=== PATIENT | female | born 1990 | race Caucasian/White ===

== ENCOUNTER 2016-11-20 13:50 | Inpatient (IN) | payer OTHER ==
--- NOTE | 2016-11-20 14:11 | RAD ---
HISTORY: Right-sided facial droop, slurred speech COMPARISONS: MRI of the brain dated March 08, 2011 TECHNIQUE: Multiple contiguous axial CT scans were obtained of the head without intravenous contrast. FINDINGS: HEMORRHAGE/INFARCT: There is no hemorrhage or acute infarct. MASSES/SHIFT: There is no mass or shift. EXTRA-AXIAL SPACES: There are no extra-axial fluid collections. SULCI AND VENTRICLES: The sulci and ventricles are normal in size and position for the patient's stated age. CEREBRUM: There are no focal parenchymal abnormalities. BRAINSTEM: There are no focal parenchymal abnormalities. CEREBELLUM: There are no focal parenchymal abnormalities. VESSELS: The vessels are grossly normal. PARANASAL SINUSES: The paranasal sinuses are clear. ORBITS: The orbits are unremarkable. BONES AND SOFT TISSUE: No bone or soft tissue abnormalities are noted. OTHER: None IMPRESSION: NO ACUTE INTRACRANIAL PATHOLOGY. PRELIMINARY FINDINGS WERE DISCUSSED WITH DR. WRIGHT IN THE EMERGENCY DEPARTMENT AT APPROXIMATELY 2:07 PM ON NOVEMBER 20, 2016.
[2016-11-20 14:21] LABS: Hematocrit 41 % (35-47); Hemoglobin 13.6 g/dl (12.0-16.0); Mean Corpuscular HGB Conc 33 g/dl (31-36); Mean Corpuscular Hemoglobin 31 pg (27-31); Mean Corpuscular Volume 93 fL (80-97); Mean Platelet Volume 8 um3 (7.4-10.4); Red Blood Count 4.37 10^6/ul (4.0-5.4); Red Cell Distribution Width 13 % (10.5-15)
[2016-11-20] MEDS ORDERED: NS 0.9% 1000 ML* 1,000 ML IV ONE (14:26)
[2016-11-20 14:36] LABS: Albumin 4.4 g/dL (3.2-5.2); BUN/Creatinine Ratio 12.8 (8-20); Calcium 9.7 mg/dL (8.6-10.3); EGFR African American 116.7 (>60); EGFR Non-African American 90.7 (>60); Globulin 2.7 g/dL (2-4); HDL Cholesterol 63.9 mg/dL; Potassium 3.6 mmol/L (3.5-5.0); Total Bilirubin 0.5 mg/dL (0.2-1.0); Total Protein 7.1 g/dL (6.4-8.9)
[2016-11-20] MEDS ORDERED: Iodixanol* (CONTRAST) 320 MG/ML 100 ML SDV IV ONE (14:41)
[2016-11-20 14:42] LABS: Urine Bilirubin Negative (Negative); Urine Glucose Negative (Negative); Urine Nitrite Negative (Negative)
--- NOTE | 2016-11-20 15:05 | RAD ---
HISTORY: Code hung, stroke COMPARISONS: April 18, 2014 VIEWS:1: Single frontal portable view of the chest at 2:55 PM FINDINGS: LINES AND TUBES: None. CARDIOMEDIASTINAL SILHOUETTE: The cardiomediastinal silhouette is normal for portable technique. PLEURA: The costophrenic angles are sharp. No pleural abnormalities are noted. LUNG PARENCHYMA: The lungs are clear. ABDOMEN: The upper abdomen is clear. There is no subphrenic gas. BONES AND SOFT TISSUES: No bone or soft tissue abnormalities are noted. IMPRESSION: NO ACTIVE CARDIOPULMONARY DISEASE.
[2016-11-20] MEDS ORDERED: ALTEPLASE IV ONE ×4 (15:13)
[2016-11-20] MEDS ORDERED: Alteplase* 100 MG VIAL ONE (15:18)
--- NOTE | 2016-11-20 15:38 | RAD ---
HISTORY: Right facial droop, speech difficulty COMPARISONS: Head CT dated November 02, 2016 TECHNIQUE: Multiple contiguous axial CT scans were obtained of the head and neck After the administration of nonionic intravenous contrast timed to the systemic arterial phase of contrast enhancement. Coronal and sagittal multiplanar reformations are submitted for review. Multiple 3-D maximum intensity projection reconstructions are also submitted for review. FINDINGS: Evaluation is limited by suboptimal contrast opacification. CTA NECK: AORTIC ARCH: The left vertebral artery originates from the aortic arch. There is no ostial or proximal stenosis of the cephalic great vessels. RIGHT VERTEBRAL ARTERY: The right vertebral artery is patent along its course, without stenosis. LEFT VERTEBRAL ARTERY: The left vertebral artery is patent along its course, without stenosis. DOMINANCE: The vertebral arteries are codominant. RIGHT COMMON CAROTID ARTERY: The right common carotid artery is patent. The right carotid bifurcation occurs at C5-C6 RIGHT INTERNAL CAROTID ARTERY: There is no right internal carotid artery stenosis by NASCET criteria. RIGHT EXTERNAL CAROTID ARTERY: The right external carotid artery is unremarkable. LEFT COMMON CAROTID ARTERY: The left common carotid artery is patent. The left carotid bifurcation occurs at C6 LEFT INTERNAL CAROTID ARTERY: There is no left internal carotid artery stenosis by NASCET criteria. LEFT EXTERNAL CAROTID ARTERY: The left external carotid artery is unremarkable. VENOUS CIRCULATION: The venous system is unremarkable. SALIVARY GLANDS: The parotid glands, submandibular glands, sublingual glands are normal. NASAL CAVITY/NASOPHARYNX: The nasal cavity and nasopharynx are normal. ORAL CAVITY/OROPHARYNX: The oral cavity is obscured by streak artifact from dental amalgam. The visualized oral cavity and oropharynx are unremarkable. LARYNGEAL APPARATUS/HYPOPHARYNX: The laryngeal apparatus and hypopharynx are normal. UPPER AIRWAY/UPPER ESOPHAGUS: The visualized upper airway and esophagus are normal. LUNG APICES: The lung apices are clear. THYROID GLAND: The thyroid gland is normal. LYMPH NODES: There is no lymphadenopathy by size criteria. BONES AND SOFT TISSUES: No bone or soft tissue abnormalities are noted. CTA HEAD: INTRACRANIAL CIRCULATION: There is no aneurysm, vascular malformation, occlusion, or stenosis of the visualized intracranial circulation. The anterior communicating artery complex is clear. Bilateral posterior communicating arteries are identified. VENOUS CIRCULATION: The venous system is unremarkable. PERFUSION: There is no obvious parenchymal perfusion deficit. HEMORRHAGE/INFARCT: There is no hemorrhage or acute infarct. MASSES/SHIFT: There is no mass or shift. EXTRA-AXIAL SPACES: There are no extra-axial fluid collections. SULCI AND VENTRICLES: The sulci and ventricles are normal in size and position for the patient's stated age. CEREBRUM: There are no focal parenchymal abnormalities. BRAINSTEM: There are no focal parenchymal abnormalities. CEREBELLUM: There are no focal parenchymal abnormalities. PARANASAL SINUSES: The paranasal sinuses are clear. ORBITS: The orbits are unremarkable. BONES AND SOFT TISSUE: No bone or soft tissue abnormalities are noted. OTHER: There is no abnormal enhancement. IMPRESSION: 1. NO ANEURYSM, VASCULAR MALFORMATION, OCCLUSION, OR STENOSIS OF THE VISUALIZED INTRACRANIAL CIRCULATION. 2. NO INTERNAL CAROTID ARTERY STENOSIS BY NASCET CRITERIA. CPT II Codes: 3100F
--- NOTE | 2016-11-20 16:00 | ED ---
Henry Limon Anna, scribed for Reji Wright MD on 11/20/16 at 1358 . Neurological HPI - HPI Summary HPI Summary: Patient is a 26 y/o female BIBA to [facility] presenting with sudden onset of intermittent aphasia that began this afternoon at 13:00 while she was at work. She additionally has right-sided facial droop. She reports feeling dizzy and unwell. Her arms work as normal, though she has some diminished strength in her right side. She has the beginnings of a MÁRQUEZ at the front of her head. - History of Current Complaint Stated Complaint: CODE CARRENO Time Seen by Provider: 11/20/16 13:53 Hx Obtained From: Patient, EMS Hx Last Menstrual Period: 02/05/2014 Onset/Duration: Started hours ago, Still Present Timing: Constant - Allergy/Home Medications Allergies/Adverse Reactions: Allergies Allergy/AdvReac Type Severity Reaction Status Date / Time Bee Venom Allergy Severe Anaphylatic Verified 07/09/15 10:31 Shock Milk Protein Extract Allergy lip Verified 07/09/15 10:31 [From Spiriva] swelling Tiotropium [From Spiriva] Allergy lip Verified 07/09/15 10:31 swelling ENVIRONMENTAL Allergy Severe Anaphylatic Uncoded 07/09/15 10:31 Shock PMH/Surg Hx/FS Hx/Imm Hx Endocrine/Hematology History: Reports: Hx Anemia - pt states she has had issues with anemia Denies: Hx Blood Transfusions, Hx Diabetes Cardiovascular History: Denies: Hx Congestive Heart Failure, Hx Pacemaker/ICD, Hx Rheumatic Fever, Other Cardiovascular Problems/Disorders Respiratory History: Reports: Hx Asthma Denies: Hx Pulmonary Embolism, Other Respiratory Problems/Disorders GI History: Denies: Other GI Disorders History: Denies: Other Problems/Disorders Musculoskeletal History: Reports: Hx Arthritis - REACTIVE ARTHRITIS, Hx Tendonitis - LEFT ANKLE Sensory History: Reports: Hx Contacts or Glasses Denies: Hx Hearing Aid Opthamlomology History: Reports: Hx Contacts or Glasses Neurological History: Reports: Hx Headaches, Hx Migraine - WHEN STARTING BCP Denies: Hx Dementia, Hx Developmental Delay, Hx Seizures, Other Neuro Impairments/Disorders Psychiatric History: Denies: Hx Anxiety, Hx Depression, Hx Panic Disorder, Other Psychiatric Issues/Disorders - Surgical History Surgery Procedure, Year, and Place: l leg tendon reconstruction x2 Hx Anesthesia Reactions: No Infectious Disease History: Denies: Hx Clostridium Difficile, Hx Hepatitis, Hx Human Immunodeficiency Virus (HIV), Hx of Known/Suspected MRSA, Hx Shingles, Hx Tuberculosis, Hx Known/ Suspected VRE, Hx Known/Suspected VRSA, History Other Infectious Disease, Traveled Outside the [place] in Last 30 Days - Family History Known Family History: Positive: Other - Hx CA in grandparents and parents; Hx CVA in sister - Social History Occupation: Employed Full-time Lives: With Family Alcohol Use: None Substance Use Type: Reports: None Smoking Status (MU): Former Smoker Type: Cigarettes Amount Used/How Often: 6-7 cig/day Length of Time of Smoking/Using Tobacco: 8 years Have You Smoked in the Last Year: No Review of Systems Neurological: Other - Aphasia, Right-sided facial droop, dizziness Positive: Headache, Weakness Psychological: Normal All Other Systems Reviewed And Are Negative: Yes Physical Exam Triage Information Reviewed: Yes Vital Signs On Initial Exam: Temp Pulse Resp BP Pulse Ox 63 19 134/81 100 11/20/16 14:30 11/20/16 14:30 11/20/16 14:30 11/20/16 14:30 Vital Signs Reviewed: Yes Appearance: Positive: Well-Appearing, No Pain Distress Skin: Positive: Warm, Skin Color Reflects Adequate Perfusion, Dry Head/Face: Positive: Normal Head/Face Inspection Eyes: Positive: EOMI, ERIK ENT: Positive: Normal ENT inspection Neck: Positive: Supple, Nontender Respiratory/Lung Sounds: Positive: Clear to Auscultation, Breath Sounds Present Cardiovascular: Positive: RRR Abdomen Description: Positive: Nontender, Soft Bowel Sounds: Positive: Present Musculoskeletal: Positive: Normal, Strength/ROM Intact Neurological: Positive: Sensory/Motor Intact, Alert, Oriented to Person Place, Time, Other - right-sided facial droop Psychiatric: Positive: Affect/Mood Appropriate Diagnostics - Vital Signs Vital Signs Temp Pulse Resp BP Pulse Ox 11/20/16 15:39 75 20 121/67 98 11/20/16 15:35 20 121/65 11/20/16 15:06 67 19 99 11/20/16 14:30 63 19 134/81 100 11/20/16 14:10 67 100 11/20/16 14:08 133/68 11/20/16 13:51 98.2 F 78 20 133/68 97 - Laboratory Lab Results: Lab Results 11/20/16 11/20/1617 Range/Units 14:14 14:14 14:14 WBC 9.0 (3.5-10.8) 10^3/ul RBC 4.37 (4.0-5.4) 10^6/ul Hgb 13.6 (12.0-16.0) g/dl Hct 41 (35-47) % MCV 93 (80-97) fL MCH 31 (27-31) pg MCHC 33 (31-36) g/dl RDW 13 (10.5-15) % Plt Count 231 (150-450) 10^3/ul MPV 8 (7.4-10.4) um3 Neut % (Auto) 72.0 (38-83) % Lymph % (Auto) 22.0 L (25-47) % Platte % (Auto) 4.2 (1-9) % Eos % (Auto) 1.0 (0-6) % Baso % (Auto) 0.8 (0-2) % Absolute Neuts (auto) 6.5 (1.5-7.7) 10^3/ul Absolute Lymphs (auto) 2.0 (1.0-4.8) 10^3/ul Absolute Monos (auto) 0.4 (0-0.8) 10^3/ul Absolute Eos (auto) 0.1 (0-0.6) 10^3/ul Absolute Basos (auto) 0.1 (0-0.2) 10^3/ul Absolute Nucleated RBC 0 10^3/ul Nucleated RBC % 0 INR (Anticoag Therapy) 0.95 (0.89-1.11) APTT 31.1 (26.0-36.3) seconds Sodium 138 (133-145) mmol/L Potassium 3.6 (3.5-5.0) mmol/L Chloride 106 (101-111) mmol/L Carbon Dioxide 26 (22-32) mmol/L Anion Gap 6 (2-11) mmol/L BUN 10 (6-24) mg/dL Creatinine 0.78 (0.51-0.95) mg/dL Est GFR ( Amer) 116.7 (>60) Est GFR (Non-Af Amer) 90.7 (>60) BUN/Creatinine Ratio 12.8 (8-20) Glucose 148 H (70-100) mg/dL POC Glucose (mg/dL) (74-106) mg/dL Lactic Acid (0.5-2.0) mmol/L Calcium 9.7 (8.6-10.3) mg/dL Total Bilirubin 0.50 (0.2-1.0) mg/dL AST 14 (13-39) U/L ALT 13 (7-52) U/L Alkaline Phosphatase 48 (34-104) U/L Troponin I 0.00 (<0.04) ng/mL Total Protein 7.1 (6.4-8.9) g/dL Albumin 4.4 (3.2-5.2) g/dL Globulin 2.7 (2-4) g/dL Albumin/Globulin Ratio 1.6 (1-3) Triglycerides 108 mg/dL Cholesterol 200 mg/dL LDL Cholesterol 115 mg/dL HDL Cholesterol 63.9 mg/dL Urine Color Urine Appearance Urine pH (5-9) Ur Specific [place] (1.010-1.030) Urine Protein (Negative) Urine Ketones (Negative) Urine Blood (Negative) Urine Nitrate (Negative) Urine Bilirubin (Negative) Urine Urobilinogen (Negative) Ur Leukocyte Esterase (Negative) Urine Glucose (Negative) Blood Type Antibody Screen 11/20/16 11/20/16 11/20/16 Range/Units 14:14 14:14 14:21 WBC (3.5-10.8) 10^3/ul RBC (4.0-5.4) 10^6/ul Hgb (12.0-16.0) g/dl Hct (35-47) % MCV (80-97) fL MCH (27-31) pg MCHC (31-36) g/dl RDW (10.5-15) % Plt Count (150-450) 10^3/ul MPV (7.4-10.4) um3 Neut % (Auto) (38-83) % Lymph % (Auto) (25-47) % [place]atte % (Auto) (1-9) % Eos % (Auto) (0-6) % Baso % (Auto) (0-2) % Absolute Neuts (auto) (1.5-7.7) 10^3/ul Absolute Lymphs (auto) (1.0-4.8) 10^3/ul Absolute Monos (auto) (0-0.8) 10^3/ul Absolute Eos (auto) (0-0.6) 10^3/ul Absolute Basos (auto) (0-0.2) 10^3/ul Absolute Nucleated RBC 10^3/ul Nucleated RBC % INR (Anticoag Therapy) (0.89-1.11) APTT (26.0-36.3) seconds Sodium (133-145) mmol/L Potassium (3.5-5.0) mmol/L Chloride (101-111) mmol/L Carbon Dioxide (22-32) mmol/L Anion Gap (2-11) mmol/L BUN (6-24) mg/dL Creatinine (0.51-0.95) mg/dL Est GFR ( Amer) (>60) Est GFR (Non-Af Amer) (>60) BUN/Creatinine Ratio (8-20) Glucose (70-100) mg/dL POC Glucose (mg/dL) 175 H (74-106) mg/dL Lactic Acid 1.8 (0.5-2.0) mmol/L Calcium (8.6-10.3) mg/dL Total Bilirubin (0.2-1.0) mg/dL AST (13-39) U/L ALT (7-52) U/L Alkaline Phosphatase (34-104) U/L Troponin I (<0.04) ng/mL Total Protein (6.4-8.9) g/dL Albumin (3.2-5.2) g/dL Globulin (2-4) g/dL Albumin/Globulin Ratio (1-3) Triglycerides mg/dL Cholesterol mg/dL LDL Cholesterol mg/dL HDL Cholesterol mg/dL Urine Color Urine Appearance Urine pH (5-9) Ur Specific [place] (1.010-1.030) Urine Protein (Negative) Urine Ketones (Negative) Urine Blood (Negative) Urine Nitrate (Negative) Urine Bilirubin (Negative) Urine Urobilinogen (Negative) Ur Leukocyte Esterase (Negative) Urine Glucose (Negative) Blood Type A Positive Antibody Screen Negative 11/20/16 Range/Units 14:30 WBC (3.5-10.8) 10^3/ul RBC (4.0-5.4) 10^6/ul Hgb (12.0-16.0) g/dl Hct (35-47) % MCV (80-97) fL MCH (27-31) pg MCHC (31-36) g/dl RDW (10.5-15) % Plt Count (150-450) 10^3/ul MPV (7.4-10.4) um3 Neut % (Auto) (38-83) % Lymph % (Auto) (25-47) % Platte % (Auto) (1-9) % Eos % (Auto) (0-6) % Baso % (Auto) (0-2) % Absolute Neuts (auto) (1.5-7.7) 10^3/ul Absolute Lymphs (auto) (1.0-4.8) 10^3/ul Absolute Monos (auto) (0-0.8) 10^3/ul Absolute Eos (auto) (0-0.6) 10^3/ul Absolute Basos (auto) (0-0.2) 10^3/ul Absolute Nucleated RBC 10^3/ul Nucleated RBC % INR (Anticoag Therapy) (0.89-1.11) APTT (26.0-36.3) seconds Sodium (133-145) mmol/L Potassium (3.5-5.0) mmol/L Chloride (101-111) mmol/L Carbon Dioxide (22-32) mmol/L Anion Gap (2-11) mmol/L BUN (6-24) mg/dL Creatinine (0.51-0.95) mg/dL Est GFR ( Amer) (>60) Est GFR (Non-Af Amer) (>60) BUN/Creatinine Ratio (8-20) Glucose (70-100) mg/dL POC Glucose (mg/dL) (74-106) mg/dL Lactic Acid (0.5-2.0) mmol/L Calcium (8.6-10.3) mg/dL Total Bilirubin (0.2-1.0) mg/dL AST (13-39) U/L ALT (7-52) U/L Alkaline Phosphatase (34-104) U/L Troponin I (<0.04) ng/mL Total Protein (6.4-8.9) g/dL Albumin (3.2-5.2) g/dL Globulin (2-4) g/dL Albumin/Globulin Ratio (1-3) Triglycerides mg/dL Cholesterol mg/dL LDL Cholesterol mg/dL HDL Cholesterol mg/dL Urine Color Yellow Urine Appearance Clear Urine pH 7.0 (5-9) Ur Specific [place] 1.005 L (1.010-1.030) Urine Protein Negative (Negative) Urine Ketones Negative (Negative) Urine Blood Negative (Negative) Urine Nitrate Negative (Negative) Urine Bilirubin Negative (Negative) Urine Urobilinogen Negative (Negative) Ur Leukocyte Esterase Negative (Negative) Urine Glucose Negative (Negative) Blood Type Antibody Screen Result Diagrams: 11/20/16 14:14 11/20/16 14:14 Lab Statement: Any lab studies that have been ordered have been reviewed, and results considered in the medical decision making process. - CT Brain CT CT Interpretation: No Acute Changes CT Interpretation Completed By: Radiologist - IMPRESSION: NO ACUTE INTRACRANIAL PATHOLOGY. PRELIMINARY FINDINGS WERE DISCUSSED WITH DR. WRIGHT IN THE EMERGENCY DEPARTMENT AT APPROXIMATELY 2:07 PM ON NOVEMBER 20, 2016. Course/Dx - Course Assessment/Plan: DR EL SAW IN ED AND TPA GIVEN. ADMIT HOSPITALIST TO ICU STABLE. - Diagnoses Provider Diagnoses: CVA (cerebral vascular accident) During the Visit The Following Alert/Code Occurred: Code Carreno - Physician Notifications Discussed Care of Patient With: Dr. El (nerology) at 14:07. He will come see the patient. Discharge - Discharge Plan Condition: Stable Disposition: ADMITTED TO [facility] Referrals: Dagoberto Bullard MD [Primary Care Provider] - The documentation as recorded by the Henry arciniega Anna accurately reflects the service I personally performed and the decisions made by me, Reji Wright MD.
[2016-11-20] MEDS ORDERED: ALPRAZolam TAB* 0.25 MG PO PRN (16:56)
[2016-11-20] MEDS ORDERED: Albuterol HFA INHALER* 8 gm MDI INH PRN (16:56)
[2016-11-20] MEDS ORDERED: Albuterol 2.5 MG/3 ML NEB.SOL* (0.083%) INH PRN (17:10)
[2016-11-20] MEDS: NS 0.9% 1000 ML* 1,000 ML IV SCH (18:17)
[2016-11-20] MEDS: Acetaminophen TAB* 325 MG PO PRN (19:29)
--- NOTE | 2016-11-20 19:35 | CONS ---
NEUROLOGY CONSULTATION: DATE OF CONSULT: 11/20/16 REFERRING PHYSICIAN: Dr. Reji Pineda. LOCATION: She is in the emergency room. CHIEF COMPLAINT: Facial weakness and numbness. 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 She, at the same time, noted difficulty coming up with words. She felt some numbness of the right hand. There may have been some headache, but she did not notice it at first. She presented to the emergency room and was evaluated by Dr. Pineda. By verbal report, she was noted to have some right lower facial weakness and diminished sensation on the right face. Skye Smith was called. At 1430 hours, on my history and exam, she reported numbness in the right side of her face and a little bit of blurriness of vision, but nothing more specific. She did not have a headache, but she states that she had a headache for about 15 minutes earlier, which was apical. She notes that her right hand feels somewhat "funny" in terms of some numbness, but not clearly any weakness. She has not noticed any symptoms in her legs. She had some problems coming up with words, but she felt at the time of my examination that was not necessarily present anymore. There is no prior history of cerebrovascular events or migraines. She had a deep vein thrombosis, treated with Lovenox, after lower extremity operation in 2012. There is no other history of clotting events. She reports that her sister , Ines Frazier, had a stroke. In reviewing the records, Ines presented with numbness and weakness of her right face in July of 2016 to our hospital. She also reported a change in taste in the right side of her tongue. She had negative MRI of the brain and lumbar puncture and ended up following up with neurologist in [facility] in [place], [place]. Ira states that her sister was diagnosed having a brain stem stroke and now takes an aspirin a day and is monitored. There is no other family history of clotting disorders. Ira had a hypercoagulation workup back in May of 2013, which was in the record, reviewed and which was negative. PAST MEDICAL HISTORY: Otherwise, unremarkable. She has generally been in good health. MEDICATIONS: She takes, I believe, Lexapro on a regular basis and has an inhaler, which she uses episodically. She does not take aspirin regularly and has not been on anticoagulants for years. FAMILY HISTORY: As noted above. Additionally, her father has atrial fibrillation. 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 REVIEW OF SYSTEMS: Notable for being a smoker. She generally does not get headaches, and the ones today are a bit unusual in that regard. There is no history of heart disease or diabetes. She has not had any recent surgeries and no trauma. There is no history of gastrointestinal or genitourinary bleeding. She is not currently having her period. She has not noticed any change in vision other than some mild blurriness, but no double vision or loss of vision. No recent infections or fevers. PHYSICAL EXAM: She is well nourished and overweight. Blood pressure on the monitors running about 128/80, heart rate 70 to 80 and appears to be in sinus, respirations 16. Skin is warm and dry. Neck is supple. Head is atraumatic. Heart is in a regular rate and rhythm without murmurs. Carotid pulses are symmetrical and there are no cervical bruits. Oral mucosa is moist and there is no oral trauma. Lungs are clear anterolaterally. Neurologic exam: Pupils react equally from 4.5 to 2.5 mm. Eye movements and visual monae are completely normal. Funduscopic exam is normal bilaterally as well. No embolic phenomenon. Facial musculature is notable for mild flattening of the right nasolabial fold. There is a mild buccal dysarthria. Tongue protrusion initially goes to the left but when asked to reattempt, she protrudes it straight. Palate rises symmetrically. Neck muscle bulk and strength is intact and hearing is intact. Motor exam reveals normal strength proximally and distally in upper and lower extremities. There is no drift of any limb. Sensory exam is notable for diminished pin in the right cheek relative to the left and diminished pin the right palm relative to the left. Light touch is intact in all limbs and pin discrimination in the lower extremities is symmetrical. Reflexes are symmetric, plantar responses are flexor bilaterally. She is alert and oriented to person, place, and time. She is a good historian with intact recent and remote memory. Language is fluent without any significant word finding issues. Attention, concentration, and fund of knowledge are all adequate. IMPRESSION: Possible cerebrovascular event. She has some subtle facial asymmetry and very subtle dysarthria. She really does not have any significant risk factors for cerebrovascular disease other than her history of deep vein thrombosis and her sister's history of stroke, which is not completely substantiated. Her NIH score is 3, putting her at a relative contraindication to tPA, but not an absolute one. RECOMMENDATIONS: Recommended a CT angiogram of neck and brain and then I am going to reevaluate her. If she still has deficits or certainly if they are getting worse, then I think she should receive tPA. If her deficits are improved or resolved, then my inclination is not to give her tPA given her very low NIH score, although she is also, I think, at a very low risk of bleeding complications given her otherwise good health. I have discussed this with Ira and also her mother who is present and we will make a determination upon return back from CT angiography. [id number]/[facility] #: [id number] AZEEM
--- NOTE | 2016-11-21 00:18 | HP ---
HISTORY AND PHYSICAL: DATE OF ADMISSION: 11/20/16 PRIMARY CARE PROVIDER: Dr. Bullard. ATTENDING PHYSICIAN WHILE IN THE HOSPITAL: Dr. Linda Hanson * (report dictated by Emanuel Kohler NP). CHIEF COMPLAINT: 1. Dizziness. 2. Facial droop. 3. Right-sided weakness. HISTORY OF PRESENT ILLNESS: Ms. Frazier is a 26-year-old female patient. She has a history of hypothyroidism, depression, anxiety asthma, history of PCOS, history of DVT after an ankle surgery, underwent a negative workup for a hypercoagulable state and a history of anxiety. She comes in today stating that around 1 o'clock she was at work. 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 She started noticing she became dizzy. She felt like she was having trouble getting her words out. She felt that she had a facial droop when she looked in the mirror. She spoke to her physician who referred her to the ER immediately because there was a concern for possible CVA. She denies any chest pain, denies any shortness of breath. Says that this has been feeling well leading up to this. She is going to school. She is under a fair amount of stress in her personal life relating to her daughters in school. She says that she has never felt any palpitations and says that last few weeks she noted that her legs have been cramping at times. She was very concerned and came into the hospital today. Because of the neuro findings, the Code Smith was called and TPA was administered and the hospitalist service as asked to evaluate for admission. PAST MEDICAL HISTORY: Significant for: 1. Hypothyroidism. 2. Depression. 3. Asthma. 4. Anxiety. 5. Polycystic ovarian syndrome. 6. DVT following ankle surgery. PAST SURGICAL HISTORY: She has had 2 ankle surgeries. HOME MEDICATIONS: According to the patient include: 1. Synthroid 50 mcg daily. 2. Lexapro 10 mg daily. 3. EpiPen as needed. 4. ProAir 2 puffs inhaled every 4 hours as needed. 5. Xanax 0.25 mg p.o. t.i.d. as needed. ALLERGIES TO MEDICATIONS: Include BEE VENOM and SPIRIVA. FAMILY HISTORY: Mother's history reviewed and noncontributory. Father had a history of AFib. SOCIAL HISTORY: She is a smoker, about a quarter pack a day for about 10 years. She does not drink alcohol. Surrogate decision maker is her mom and dad. REVIEW OF SYSTEMS: There is no documented fever. She denied having any significant weight change. There was no double vision. There is no ear discharge. No rhinorrhea. No sore throat. No thyroid enlargement. She denied having any chest pain. There is no orthopnea, no nocturnal dyspnea. There is no abdominal pain. No nausea, no vomiting. No dysuria, no frequency. There was no loss of consciousness. No pruritus, no skin ulcerations. Review of 14 systems completed, all others negative. PHYSICAL EXAMINATION GENERAL: At this time, Ms. Frazier is a 26-year-old female patient. She is sitting in the ER stretcher, does not appear to be in any acute distress. VITAL SIGNS: Blood pressure 117/62 with a pulse of 72, respirations 18, O2 sat 97%, and temperature of 98.2. HEENT: Head: Atraumatic and normocephalic. Eyes: EOMs are intact. Sclerae anicteric and not pale. Throat: Oral mucosa appears to be moist. No oropharyngeal erythema. NECK: Supple. LUNGS: Clear to auscultation bilaterally. No wheezes, rales, or rhonchi. HEART: Sounds S1, S2. Regular rate and rhythm. No murmurs, rubs, or gallops. ABDOMEN: Soft, it was flat, and nontender. Bowel sounds are present. EXTREMITIES: Pulses were 2+ throughout. She is able to move all 4 extremities. She has got some weakness in the right arm and 4/5 strength compared to the left. She is able to move all 4 extremities. NEUROLOGIC: She is awake. She is alert. Speech is clear. Tongue is midline. She does have a right-sided facial droop. [id number] intact bilaterally. Heel- to-honeycutt intact bilaterally. Her speech was clear. She did have some numbness going to the right side of her face on exam. She had no other gross focal findings. SKIN: Her skin was intact. DIAGNOSTIC STUDIES/LAB DATA: Today revealed WBC of 9.0, RBC of 4.37, hemoglobin 13.6, hematocrit of 41, platelet count 231. INR was 0.95, PTT of 31.1. Sodium 138, potassium 3.6, chloride 106, bicarb 26, BUN 10, creatinine 0.78, glucose 148, lactic 1.8, calcium 9.7. Total bili 0.5, AST 14, ALT 13, alk phos 48. Troponin 0. Albumin 4.4. Her LDH is 115. Urine was obtained, it was negative. She had a head CTA today, which showed no aneurysm, vascular malformation, occlusion, or thrombosis visualized intracranial circulation. No internal carotid artery stenosis. She had a chest x-ray obtained today, which showed no active cardiopulmonary disease. She had a brain CT obtained today, which showed no acute intracranial pathology. EKG is pending. Old medical records reviewed. ASSESSMENT AND PLAN: Ms. Frazier is a 26-year-old female patient presenting to the ER today with complaints of a right-sided facial droop. On evaluation today , Skye Smith was called and TPA was given per the direction of Neurology. She will be admitted under inpatient status for: 1. Concern of cerebrovascular accident: At this point, she did have a negative hypocoagulable workup. I did touch base with Oncology. They recommended repeating a lupus anticoagulant which we will do in the morning. I think we need to get a AUBREE, MRI of the brain. She had a CTA of the head and neck. We need to repeat the CT of the brain in 24 hours and then start aspirin if the repeat CT is negative. Hold any aspirin now or heparin products because of the TPA. Dr. Lockhart did fill out the orders of TPA protocol which we will follow. She will be placed in the ICU with frequent neuro checks. We will get a lipid panel in the morning and A1c in the morning as well and we will continue to monitor. Should there be any neurological decline, obviously we will get a stat CT of the brain and we will continue to follow. The patient is aware that the biggest side effect and risk of this medication is internal hemorrhage. We will continue to follow. I will order PT, OT, and speech and swallow eval has been ordered. I am going to hold off on the PT and OT evaluation though for now because she is on bedrest for at least the first 24 hours after the TPA administration. This can be ordered tomorrow. 2. Hypothyroidism: Continue her Synthroid as prescribed. 3. Anxiety and depression. Continue meds as prescribed. 4. History of deep venous thrombosis. Again, we are going to check the lupus anticoagulant. 5. DVT prophylaxis: SCDs only at this point given the fact that she had the TPA. 5. Fluids, electrolytes, and nutrition: She is NPO pending swallow eval, then she will be NPO for 24 hours except meds. I have recommended a heart healthy diet. 6. Code Status: Full code. TIME SPENT: Time spent on the admission 70 minutes; greater than half the time was spent [id number] with the patient obtaining my history and physical, other half the time spent going over the plan of care with the patient and implementing plan of care. I did discuss the plan of care with my attending, Dr. Hanson; she is in agreement. EMANUEL KOHLER NP CC: Dr. Bullard; Dr. Lockhart* [id number]/[facility] #: [id number] MTDD
[2016-11-21 07:02] LABS: Hematocrit 35 % (35-47); Hemoglobin 11.8 g/dl (12.0-16.0); Mean Corpuscular HGB Conc 34 g/dl (31-36); Mean Corpuscular Hemoglobin 32 pg (27-31); Mean Corpuscular Volume 93 fL (80-97); Mean Platelet Volume 9 um3 (7.4-10.4); Red Blood Count 3.74 10^6/ul (4.0-5.4); Red Cell Distribution Width 13 % (10.5-15)
[2016-11-21] MEDS: Levothyroxine TAB* 50 MCG TAB PO SCH (07:05)
[2016-11-21] MEDS: Acetaminophen TAB* 325 MG PO PRN ×3 (07:07→16:58)
[2016-11-21 07:13] LABS: ALT 10 U/L (7-52); Albumin 3.5 g/dL (3.2-5.2); Alkaline Phosphatase 37 U/L (34-104); BUN/Creatinine Ratio 19.4 (8-20); Blood Urea Nitrogen 12 mg/dL (6-24); CO2 Carbon Dioxide 23 mmol/L (22-32); Calcium 8.3 mg/dL (8.6-10.3); Chloride 111 mmol/L (101-111); Cholesterol 159 mg/dL; EGFR African American 152.1 (>60); EGFR Non-African American 118.3 (>60); Globulin 2.2 g/dL (2-4); Glucose 85 mg/dL (70-100); HDL Cholesterol 47.6 mg/dL; LDL Cholesterol 95 mg/dL; Sodium 137 mmol/L (133-145); Total Protein 5.7 g/dL (6.4-8.9); Triglycerides 84 mg/dL
[2016-11-21] MEDS: Citalopram TAB* 20 MG PO SCH (09:07)
--- NOTE | 2016-11-21 11:20 | RAD ---
HISTORY: Right-sided face and hand numbness COMPARISONS: None TECHNIQUE: The following sequences were obtained of the head: Sagittal T1-weighted images, axial T2-weighted images, axial FLAIR images, axial susceptibility weighted images, axial T1-weighted images. Additionally, axial diffusion-weighted images were obtained with calculated apparent diffusion coefficients. FINDINGS: HEMORRHAGE/INFARCT: There is no hemorrhage or acute infarct. MASSES/SHIFT: There is no mass or shift. EXTRA-AXIAL SPACES/MENINGES: There are no extra-axial fluid collections. SULCI AND VENTRICLES: The sulci and ventricles are normal in size and position for the patient's stated age. CEREBRUM: There are no focal parenchymal abnormalities. BRAINSTEM: There are no focal parenchymal abnormalities. CEREBELLUM: There are no focal parenchymal abnormalities. The cerebellar tonsils are normal in size and position. SELLA: The sella is normal. PINEAL: The pineal region is clear. CP ANGLE/TEMPORAL BONES: The labyrinthine structures are grossly normal. VESSELS: Normal flow-voids are noted within the visualized vertebral vasculature. DIFFUSION ABNORMALITIES: There are no diffusion abnormalities. PARANASAL SINUSES/MASTOIDS: The paranasal sinuses are clear. ORBITS: The orbits are unremarkable. BONES AND SOFT TISSUE: No bone or soft tissue abnormalities are noted. OTHER: None IMPRESSION: NORMAL BRAIN. NO RESTRICTED DIFFUSION TO SUGGEST ACUTE INFARCT.
[2016-11-21] MEDS: Ondansetron INJ* 2 MG/ML VIAL IV PRN ×2 (12:26→18:54)
[2016-11-21] MEDS: NS 0.9% 1000 ML* 1,000 ML IV SCH (15:12)
--- NOTE | 2016-11-21 15:59 | PN ---
Subjective Date of Service: 11/21/16 Interval History: Patient seen this morning. Feels like some of her symptoms have improved. Still with some facial numbness. No more word finding difficulties. Family History: Unchanged from Admission Social History: Unchanged from Admission Past Medical History: Unchanged from Admission Objective Active Medications: Acetaminophen (Tylenol Tab*) 650 mg PO Q4H PRN Albuterol (Ventolin Hfa Inhaler*) 2 puff INH Q4H PRN Albuterol (Ventolin 2.5 Mg/3 Ml Neb.Jenae*) 2.5 mg INH Q2H PRN Alprazolam (Xanax Tab*) 0.25 mg PO TID PRN Citalopram Hydrobromide (Celexa Tab*) 20 mg PO DAILY ESTELITA Sodium Chloride (Ns 0.9% 1000 Ml*) 1,000 mls @ 100 mls/hr IV PER RATE ESTELITA Levothyroxine Sodium (Synthroid Tab*) 50 mcg PO DAILY@0600 ESTELITA Ondansetron HCl (Zofran Inj*) 4 mg IV Q6H PRN Vital Signs 11/20/16 11/20/16 11/20/16 16:00 16:15 17:00 Temperature Pulse Rate 72 69 Respiratory 23 17 Rate Blood Pressure 127/65 (mmHg) O2 Sat by Pulse 97 97 Oximetry 11/20/16 11/20/16 11/20/16 19:30 19:45 20:00 Temperature 99.7 F Pulse Rate 68 69 Respiratory 16 13 Rate Blood Pressure 131/69 142/66 125/65 (mmHg) O2 Sat by Pulse 96 97 Oximetry 11/21/16 11/21/16 11/21/16 09:00 09:30 10:00 Temperature Pulse Rate 61 70 64 Respiratory 14 12 17 Rate Blood Pressure 119/52 126/65 128/71 (mmHg) O2 Sat by Pulse 92 96 96 Oximetry Oxygen Devices in Use Now: None Appearance: Young, AAF, laying in bed in NAD Eyes: No Scleral Icterus Ears/Nose/Mouth/Throat: Mucous Membranes Moist Neck: NL Appearance and Movements; NL JVP Respiratory: Symmetrical Chest Expansion and Respiratory Effort, Clear to Auscultation Cardiovascular: NL Sounds; No Murmurs; No JVD, RRR Abdominal: NL Sounds; No Tenderness; No Distention Lymphatic: No Cervical Adenopathy Extremities: No Edema Skin: No Rash or Ulcers Neurological: Alert and Oriented x 3, - - Mild R facial asymmetry, reports diminished sensation of R face, remainder of CN exam normal, sensation intact and symmetric throughout rest of body, strength 5/5/ throughout Result Diagrams: 11/21/16 06:00 11/21/16 09:20 Additional Lab and Data: Microbiology and Other Data: Microbiology 11/20/16 15:58 Nasal Screen MRSA (PCR)(DAIJA) - Final Nasal Mrsa Negative Assess/Plan/Problems-Billing Assessment: R sided facial and arm numbness, word-finding difficulties in a 26 yo F with hx of PCOS, hypothyroidism, anxiety, depression and reportedly with sister with recent CVA - Patient Problems (1) Right facial numbness Current Visit: Yes Comment: R arm numbness, word finding difficulties. Received TPA on 11/20 due to concern over symptoms of stroke although not clear if this was CVA. CT, CTA, MRI brain normal. Will start ASA 325 mg daily starting today after CT scan if negative. Lupus anticoagulant pending. Plan for AUBREE on 11/22. NPO after midnight. (2) Hypothyroidism Current Visit: Yes Comment: Continue synthroid (3) Depression Current Visit: Yes Comment: Continue home medications (4) DVT prophylaxis Current Visit: Yes Comment: SCDs
--- NOTE | 2016-11-21 16:51 | RAD ---
INDICATION: Neurologic changes status post TPA. COMPARISON: Comparison is made with a prior CT of the brain from November 20, 2016 and a prior MRI of the brain from November 21, 2016. TECHNIQUE: Contiguous axial sections of the brain were obtained from the skull base to the vertex without contrast. FINDINGS: The ventricles, cisterns and sulci are within normal limits. No significant focal abnormality or mass effect is seen. There is no evidence for hemorrhage. No significant focal osseous abnormality is seen. The visualized portion of the paranasal sinuses and mastoid air cells appear clear. IMPRESSION: NO EVIDENCE FOR GROSS ACUTE INFARCT, MASS EFFECT OR HEMORRHAGE.
[2016-11-21] MEDS: Aspirin TAB* 325 MG PO SCH (17:12)
[2016-11-21] MEDS ORDERED: Docusate CAP* 100 MG PO PRN (19:08)
[2016-11-21] MEDS ORDERED: Polyethylene Glycol 3350* 17 GM PACKET PO PRN (19:08)
[2016-11-21] MEDS ORDERED: Ibuprofen TAB* 400 MG PO PRN (19:08)
--- NOTE | 2016-11-21 20:17 | CONS ---
NEUROLOGY FOLLOWUP NOTE: DATE OF FOLLOWUP: 11/21/16 HOSPITALIST: MAC Horowitz LOCATION: She is in ICU bed 9. CHIEF COMPLAINT: Right-sided numbness and facial weakness. INTERVAL HISTORY: Since yesterday, Ira notes resolution of the sensory symptoms in her hands when I spoke to her this morning at about 8:30. She also noted some mild numbness in the right side of her face, but it was not as intense. She had no other symptoms at that time when I spoke to her. On reevaluation this afternoon at 2:20 p.m., she reports a mild numbness in the right cheek. She reports no problems in her right hand. Her mother reports that several examiners have felt that perhaps her right leg is weak. She reported that she felt like her right leg was heavy when she holds it up sometimes. She had not reported to me at several questioning sessions and several examinations over the last 20 hours or so. Other than that, she has no new symptoms other than the headache which she has had on and off since yesterday. MEDICATIONS: Reviewed and she has: 1. Albuterol inhaler as needed. 2. Alprazolam 0.25 mg p.o. t.i.d. p.r.n. anxiety. 3. Celexa 20 mg p.o. daily. 4. Levothyroxine 50 mcg p.o. daily. 5. Ondansetron 4 mg IV q.6 hours p.r.n. nausea. PHYSICAL EXAMINATION: She has been afebrile. Blood pressure has been running 122 to 128 systolic over 62 to 71 diastolic, heart rate 60 to 70 in sinus on the monitor, respirations 17. Neurologic exam both this morning and this afternoon: Pupil responses are normal and fundi are normal. Visual monae are full to confrontation and eye movements are normal. Facial, sensation to light touch was diminished subjectively to the right cheek. Palate and tongue appeared normal and there is no dysarthria. Tongue protrudes to midline. Facial musculature looks symmetric with careful observation and conversation. With formal testing, the left angle of the mouth is pulled to the left. Motor exam of the upper and lower extremities is normal both this morning as well as this afternoon. Language is fluent and memory is intact. LABORATORY DATA: Reviewed and her lipid profile is notable for a cholesterol this morning of 159, LDL 95. CBC this morning notable for hemoglobin of 11.8, it was 13.6 yesterday. MRI of the brain from this morning is reviewed and looks normal. The radiologist doctors have some reviewed and interpreted as normal as well. I reviewed the images personally. There is one bright area very high in the left centrum semi- ovale which looks to be a partial cut of a sulcus. There are no diffusion abnormalities. CT angiogram of the brain and neck from yesterday was interpreted as normal. IMPRESSION: Possible cerebrovascular event but also possible is a psychogenic process or migraine. She has tolerated TPA to this point. Went over the differential diagnoses including the possibility of migraine with a sensory aura. She is scheduled for a CT of the brain 24 hours after her TPA infusion later this afternoon, at which point aspirin could be started. A transesophageal echocardiogram is also pending and blood work has been drawn for antiphospholipid antibodies, which were negative when checked several years ago. We will get her up and ambulate her and evaluate with serial neurological exams over the course of the next day or two. [id number]/[facility] #: [id number] AZEEM
[2016-11-22] MEDS: Levothyroxine TAB* 50 MCG TAB PO SCH (05:56)
[2016-11-22] MEDS ORDERED: Lidocaine 2% VISCOUS* 15 ML UDC ONE (10:18)
[2016-11-22] MEDS ORDERED: Flumazenil* 0.1 MG/ML 5 ML MDV ONE (10:18)
[2016-11-22] MEDS ORDERED: Midazolam* 1 MG/ML 5 ML VIAL (5 MG) ONE (10:18)
[2016-11-22] MEDS ORDERED: Naloxone* 0.4 MG/ML 1 ML VIAL ONE (10:18)
[2016-11-22] MEDS ORDERED: fentaNYL* 50 MCG/ML 2 ML VIAL (100 MCG VIAL) ONE (10:18)
[2016-11-22 13:04] LABS: LAC APTT 28 sec (26 - 36); Lac DRVVT Screen Ratio 0.9 ratio (0.0 - 1.1); Prothrombin Time(LAC) 11.5 sec
--- NOTE | 2016-11-22 13:34 | TEE ---
Patient: DONNY EMANUEL [facility] Rec#: [id number] : 1990 Date: 11/22/2016 Age: 26y Height: 180.3 cm / 71.0 in Weight: 105.7 kg / 233.0 lbs Sex: F BSA: 2.25 Room#: [facility] Type: Inpatient Referring: Dank Lockhart MD Performing: Maggy Sandra MD Reading: Maggy Sandra MD Novelty Dipper: Elizabeth Ferrera Novelty Dipper: Milagro Catsellanos RDCS Nurse: Tiffany Bermudez RN Transesophageal Echocardiogram Indication: CVA BP: 118/60 HR: 86 Rhythm: NSR Findings History: Hypothyroidism, depression, asthma, anxiety, polycystic ovary disease. Technical Comments: The study quality is good. Left Ventricle: The left ventricular chamber size is normal. There is normal left ventricular systolic function. The estimated ejection fraction is 55-60%. Left Atrium: The left atrial chamber size is normal. There is no thrombus visualized in the left atrial appendage. Right Ventricle: The right ventricular cavity size is normal. The right ventricular global systolic function is normal. Right Atrium: The right atrial cavity size is normal. A patent foramen ovale is visualized. A patent foramen ovale is demonstrated by color Doppler and agitated contrast. of a very small size. Aortic Valve: The aortic valve structure is normal. There is a trace of aortic regurgitation. There is no evidence of aortic stenosis. Mitral Valve: The mitral valve leaflets appear normal. There is a trace of mitral regurgitation. There is no evidence of mitral stenosis. Tricuspid Valve: The tricuspid valve leaflets are normal. There is trace to mild tricuspid regurgitation. There is no tricuspid stenosis. Pulmonic Valve: The pulmonic valve appears normal. There is no evidence of pulmonic regurgitation. There is no pulmonic stenosis. Pericardium: There is no pericardial effusion. Aorta: There is no dilatation of the ascending aorta. There is no dilation of the aortic root. There is no plaque visualized in the ascending aorta. There is no plaque visualized in the transverse aorta. There is no plaque visualized in the descending aorta. Pulmonary Artery: The main pulmonary artery appears normal. Venous: The bicaval view was obtained and appears normal. The pulmonary veins appear normal in size. 2 of 4 visualized. The flow pattern of the pulmonary veins appear normal. AUBREE Procedures: History and physical as well as labs were reviewed. The patient was in a fasting state. Risks and benefits of the procedure, including alternatives, were discussed and written informed consent was obtained. The patient and/or their health care membership sales representative expressed understanding of the procedure, risks and benefits. Baseline and continuous monitoring of blood pressure, heart rate, pulse oximetry and heart rhythm was performed throughout the procedure. The appropriate time-out procedure was performed as per [facility] protocol. The patient was placed in the left lateral decubitus position. The patient's posterior pharynx was anesthetized with 20ml of 2% viscous lidocaine. The patient received IV Midazolam with a total dose of 8mg. The patient received IV Fentanyl with a total dose of 100 mcg. An oral bite block was inserted for protection of oral dentition. The multiplane transesophageal echocardiogram probe was inserted through the posterior oropharynx and advanced into the esophagus without difficulty. Patient experienced an episode of vomiting during this study. Airway maintained, orally suctioned as needed. Multiple 2D images were obtained of the heart and its related structures. Color flow Doppler was used for evaluation. Spectral Doppler was also used. The atrial septum was interrogated with color flow Doppler. At the conclusion of the procedure the probe was removed with continuous suction without complications. The patient tolerated the procedure with no apparent complications. Contrast: Normal saline was used as contrast for the bubble study. Intravenous contrast was used to help determine presence of intracardiac shunting. Conclusions The left ventricular chamber size is normal. The estimated ejection fraction is 55-60%. A patent foramen ovale is demonstrated by color Doppler and agitated contrast. of a very small size. There is a trace of aortic regurgitation. There is a trace of mitral regurgitation. There is trace to mild tricuspid regurgitation. Measurements Name Value Normal Range Aortic Annulus 2.4 cm (1.4 - 2.6) Ao root diameter (2D) 3.1 cm (2.1 - 3.5) Ascending Ao 2.8 cm (2.1 - 3.4) Name Value Normal Range MV E-wave Vmax 0.67 m/sec - MV deceleration time 135 msec - MV A-wave Vmax 0.83 m/sec - MV E:A ratio 0.8 ratio -
[2016-11-22] MEDS: Aspirin TAB* 325 MG PO SCH (13:39)
[2016-11-22] MEDS: Citalopram TAB* 20 MG PO SCH (13:39)
--- NOTE | 2016-11-22 14:09 | DCNOTE ---
Patient seen this morning. States she is still having some mild tingling in the face and R hand. AUBREE results reviewed. On exam, RRR, s1 and s2 present, no m/g/r, abd soft, NTND, BS+, reports some slight difference in R v1/v2 vs L, v3 symmetric, no difference in hands on exam. no weakness Apprecaite Neurology assistance. AUBREE showed very small PFO, will get LE dopplers. If negative plan to discharge home on ASA and outpatient f/u with Dr. Lockhart
--- NOTE | 2016-11-22 14:56 | RAD ---
Indication: Patient with stroke. Duplex Doppler sonography of the deep venous system of both lower extremities was performed. Bilaterally the common femoral veins, proximal greater saphenous veins, proximal deep femoral veins, femoral veins, popliteal veins, posterior tibial veins and peroneal veins appear patent and compressible. IMPRESSION: NO EVIDENCE OF DEEP VENOUS THROMBOSIS OF EITHER LOWER EXTREMITY IS PRESENT.
[2016-11-22 16:16] VITALS: BP 125/62
--- NOTE | 2016-11-23 08:54 | DS ---
DISCHARGE SUMMARY: DATE OF ADMISSION: 11/20/16. DATE OF DISCHARGE: 11/22/16. PRIMARY CARE PHYSICIAN: Dr. Bullard CONSULTING PHYSICIAN: Dr. Dank Lockhart, Neurology. PRINCIPAL DISCHARGE DIAGNOSIS: Right-sided numbness and weakness, possibly due to migraine. SECONDARY DIAGNOSES: Hypothyroidism, depression, anxiety, asthma, PCOS, prior DVT following ankle surgery. STUDIES DONE DURING HOSPITALIZATION: 1. CT of the brain without contrast: Impression: No acute intracranial pathology. 2. Chest x-ray: Impression: No active cardiopulmonary disease. 3. CTA of head and neck: No aneurysm, vascular malformation, occlusion or stenosis of the visualized intracranial circulation. No internal carotid artery stenosis by NASCET criteria. 4. MRI of the brain: Impression: Normal brain. No restricted diffusion to suggest acute infarct. 5. CT of brain without contrast: No evidence for gross acute infarct, mass affect or hemorrhage. 6. Transesophageal echocardiogram: Left ventricular chamber size is normal. Estimated ejection fraction is 55-60%. A patent foramen ovale is demonstrated by color Doppler and agitated contrast, although very small size; trace aortic regurgitation, trace mitral regurgitation , trace to mild tricuspid regurgitation. 4. Bilateral low extremity Dopplers: Impression: No evidence of deep veinous thrombosis of either lower extremity. HISTORY OF PRESENT ILLNESS AND HOSPITAL SUMMARY: Please see the full history and physical by Emanuel Kohler NP for full details. Briefly, Ms. Frazier is a 26-year- old female with a past medical history as above, who presented to the hospital with symptoms of some dizziness, possible facial droop, right-sided tingling and difficult getting her words out. The patient was called as a Code Smith in the emergency department and was administered TPA. She was evaluated by neurology. She underwent extensive testing including CT of the brain, CTA of head and neck, brain MRI, transesophageal echocardiogram and bilateral lower extremity Dopplers, all of which were negative. She was treated with aspirin after a 24-hour period had elapsed after her TPA administration. On further evaluation with Dr. Lockhart, he was not entirely convinced this was a stroke and could possibly attribute it to neurological symptoms secondary to possible migraine. Of note, the patient's sister was recently diagnosed with a stroke, although it seems that she had no findings on MRI either. The patient will be continued on aspirin as an outpatient and should follow up with her PCP, Dr. Bullard, as well as with Dr. Lockhart in follow up. TIME SPENT: Total time spent on this discharge - 45 minutes. This is a summary of hospitalization. Please see the full medical record for further details. CC: Dr. Bullard* [id number]/CPS #: [id number] MTDD
== END 2016-11-22 16:45 | disposition home or self-care (01) | DRG 103 ==
LOC: ED 13:50 → ICU 15:52 → MEDTELE 11-21 15:38
PROVIDERS: ADMIT Hospitalist; ATTEND Hospitalist
PROC: 3E03317 Introduction of Other Thrombolytic into Peripheral Vein, Percutaneous Approach (ICD-10-PCS; principal; 2016-11-20)
PROC: B24BZZ4 Ultrasonography of Heart with Aorta, Transesophageal (ICD-10-PCS; 2016-11-22)
DX: G43.909 Migraine, unspecified, not intractable, without status migrainosus (principal); M02.30 Reiter's disease, unspecified site; Q21.1 Atrial septal defect; E03.9 Hypothyroidism, unspecified; F32.9 Major depressive disorder, single episode, unspecified; F41.9 Anxiety disorder, unspecified; E28.2 Polycystic ovarian syndrome; Z86.718 Personal history of other venous thrombosis and embolism; I08.3 Combined rheumatic disorders of mitral, aortic and tricuspid valves; Z82.3 Family history of stroke; Z91.030 Bee allergy status; Z91.011 Allergy to milk products; Z88.8 Allergy status to other drugs, medicaments and biological substances; Z91.048 Other nonmedicinal substance allergy status; Z85.9 Personal history of malignant neoplasm, unspecified; Z87.891 Personal history of nicotine dependence; Z82.49 Family history of ischemic heart disease and other diseases of the circulatory system
CPT/HCPCS: 36415; 70450; 70496; 70498; 70551; 71010; 80053; 80061; 81003; 83036; 83605; 84484; 85025; 85610; 85613; 85730; 86850; 86900; 86901; 87641; 93005; 93312; 93325; 93970; A9270-GY; J2250; J2310; J2405; J2997; J3010; Q9967

== ENCOUNTER 2017-01-17 04:05 | Emergency (ER) | payer OTHER ==
[2017-01-17 04:16] VITALS: BP 148/91
[2017-01-17] MEDS ORDERED: oxyCODONE/Acetamin 5/325 MG* TAB PO ONE ×2 (04:24→04:59)
[2017-01-17] MEDS ORDERED: Amoxicillin/Clavulanate TAB* 875 MG PO ONE (04:24)
--- NOTE | 2017-01-17 04:59 | ED ---
Adri Limon Alok, scribed for Reji Pineda MD on 01/17/17 at 0432 . Throat Pain/Nasal Congestion - HPI Summary HPI Summary: 26 y/o female presents to the ED with right ear pain which woke her up this evening. Pt state that her ear pain is deep within her ear and has difficulty hearing through it. Pt also has had rhinorrhea and a sore throat for the past few days but denies any SOB. She notes allergies to Spiriva. - History of Current Complaint Chief Complaint: EDEarPain Time Seen by Provider: 01/17/17 04:15 Hx Obtained From: Patient Onset/Duration: Gradual Onset, Lasting Hours, Still Present Severity: Moderate Associated Signs And Symptoms: Positive: Nasal Discharge - Allergies/Home Medications Allergies/Adverse Reactions: Allergies Allergy/AdvReac Type Severity Reaction Status Date / Time Bee Venom Allergy Severe Anaphylatic Verified 01/17/17 04:16 Shock Tiotropium [From Spiriva] Allergy lip Verified 01/17/17 04:16 swelling ENVIRONMENTAL Allergy Severe Anaphylatic Uncoded 01/17/17 04:16 Shock PMH/Surg Hx/FS Hx/Imm Hx Endocrine/Hematology History: Reports: Hx Anticoagulant Therapy - previous DVT- Lovenox, Hx Anemia - pt states she has had issues with anemia Denies: Hx Blood Transfusions, Hx Diabetes Cardiovascular History: Reports: Hx Deep Vein Thrombosis - status post tendon repair Denies: Hx Congestive Heart Failure, Hx Pacemaker/ICD, Hx Rheumatic Fever, Other Cardiovascular Problems/Disorders Respiratory History: Reports: Hx Asthma Denies: Hx Pulmonary Embolism, Other Respiratory Problems/Disorders GI History: Denies: Other GI Disorders History: Denies: Other Problems/Disorders Musculoskeletal History: Reports: Hx Arthritis - REACTIVE ARTHRITIS, Hx Tendonitis - LEFT ANKLE Sensory History: Reports: Hx Contacts or Glasses Denies: Hx Hearing Aid Opthamlomology History: Reports: Hx Contacts or Glasses Neurological History: Denies: Hx Dementia, Hx Developmental Delay, Hx Headaches, Hx Migraine, Hx Nerve Disease, Hx Seizures, Hx Spinal Cord Injury, Hx Transient Ischemic Attacks (TIA), Other Neuro Impairments/Disorders Psychiatric History: Reports: Hx Depression Denies: Hx Anxiety, Hx Panic Disorder, Other Psychiatric Issues/Disorders - Surgical History Surgery Procedure, Year, and Place: l leg tendon reconstruction x2 Hx Anesthesia Reactions: No - Immunization History Date of Tetanus Vaccine: 03/21/15 Date of Influenza Vaccine: 09/19/16 Infectious Disease History: No Infectious Disease History: Denies: Hx Clostridium Difficile, Hx Hepatitis, Hx Human Immunodeficiency Virus (HIV), Hx of Known/Suspected MRSA, Hx Shingles, Hx Tuberculosis, Hx Known/ Suspected VRE, Hx Known/Suspected VRSA, History Other Infectious Disease, Traveled Outside the [place] in Last 30 Days - Family History Known Family History: Positive: Other - Hx CA in grandparents and parents; Hx CVA in sister - Social History Occupation: Employed Full-time Alcohol Use: Occasionally Substance Use Type: Reports: None Smoking Status (MU): Light Every Day Tobacco Smoker Type: Cigarettes Amount Used/How Often: 6-7 cig/day Length of Time of Smoking/Using Tobacco: 8 years Have You Smoked in the Last Year: No Review of Systems Positive: Sore Throat, Ear Ache, Nasal Discharge Negative: Shortness Of Breath All Other Systems Reviewed And Are Negative: Yes Physical Exam Triage Information Reviewed: Yes Vital Signs On Initial Exam: Initial Vitals Temp Pulse Resp BP Pulse Ox 97.8 F 57 18 148/91 99 01/17/17 04:12 01/17/17 04:12 01/17/17 04:12 01/17/17 04:12 01/17/17 04:12 Vital Signs Reviewed: Yes Appearance: Positive: Well-Appearing, Pain Distress - Moderate Skin: Positive: Warm, Skin Color Reflects Adequate Perfusion, Dry Head/Face: Positive: Normal Head/Face Inspection Eyes: Positive: EOMI, ERIK ENT: Positive: Pharyngeal erythema, Other - Swollen erythemic right ear drum Neck: Positive: Supple, Nontender Respiratory/Lung Sounds: Positive: Clear to Auscultation, Breath Sounds Present Cardiovascular: Positive: RRR Abdomen Description: Positive: Nontender, Soft Bowel Sounds: Positive: Present Musculoskeletal: Positive: Normal, Strength/ROM Intact Neurological: Positive: Normal, Sensory/Motor Intact, Alert, Oriented to Person Place, Time Psychiatric: Positive: Affect/Mood Appropriate Diagnostics - Vital Signs Vital Signs Temp Pulse Resp BP Pulse Ox 01/17/17 04:12 97.8 F 57 18 148/91 99 - Laboratory Lab Statement: Any lab studies that have been ordered have been reviewed, and results considered in the medical decision making process. Re-Evaluation - Re-Evaluation First Eval Re-Evaluation Time: 04:51 EENT Course/Dx - Course Course Of Treatment: NO CRITICAL CARE Assessment/Plan: RX AUGMENTIN AND PERCOCET. DISCHARGE HOME STABLE. - Diagnoses Provider Diagnoses: Otitis media Discharge - Discharge Plan Condition: Stable Disposition: HOME Prescriptions: Amoxicillin/Clavulanate TAB* [Augmentin TAB 875*] 875 mg PO BID #19 tab oxyCODONE/Acetamin 5/325 MG* [Percocet 5/325 TAB*] 1 tab PO Q4H PRN #20 tab MDD 6 PRN Reason: Pain Patient Education Materials: Otitis Media (ED) Referrals: Dagoberto Bullard MD [Primary Care Provider] - Additional Instructions: FOLLOW UP WITH YOUR DOCTOR. RETURN TO THE EMERGENCY DEPARTMENT FOR ANY WORSENING OF YOUR CONDITION OR QUESTIONS OR CONCERNS. The documentation as recorded by the Adri arciniega Alok accurately reflects the service I personally performed and the decisions made by me, Reji iPneda MD.
== END 2017-01-17 05:08 | disposition home or self-care (01) ==
LOC: ED 04:05
DX: H66.91 Otitis media, unspecified, right ear (principal); H92.01 Otalgia, right ear; J02.9 Acute pharyngitis, unspecified; J34.89 Other specified disorders of nose and nasal sinuses; F17.210 Nicotine dependence, cigarettes, uncomplicated
CPT/HCPCS: 99282; A9270-GY

== ENCOUNTER 2018-07-27 19:03 | Emergency (ER) | payer BC, OTHER ==
--- NOTE | 2018-07-27 19:30 | ED ---
Headache - HPI Summary HPI Summary: This patient is a 27 year old F presenting to [facility] with a chief complaint of right sided headache since 17:00 today. The patient rates the pain 4/10 in severity. Patient reports right arm heaviness, right eye heaviness, and nausea. Patient denies vomiting. She reports that the last time she got a headache was when she was here last and dx with an ischemic stroke on 11/20/16. She has a PMHx of patent foramen ovale, for which she has not had operated on. Patient is currently on Coumadin, levothyroxine, and Lexapro. - History Of Current Complaint Chief Complaint: EDGeneral Stated Complaint: POSS STROKE Time Seen by Provider: 07/27/18 19:19 Hx Obtained From: Patient Hx Last Menstrual Period: 02/05/2014 Onset/Duration: Sudden Onset, Started hours ago - 17:00 today, Still Present Currently Pain Is: Current Pain Scale(0-10)= - 4 Timing: Constant Location of Headache: Other: - Right side Associated Signs And Symptoms: Nausea, Vomiting - Denies, Other (Noted In Comments) - right arm heaviness and right eye heaviness" - Allergies/Home Medications Allergies/Adverse Reactions: Allergies Allergy/AdvReac Type Severity Reaction Status Date / Time bee venom protein (honey bee) Allergy Anaphylatic Verified 07/27/18 19:26 Shock tiotropium Allergy Swelling Verified 07/27/18 19:26 [From Spiriva with Of HandiHaler] Face,Lips,& Throat ENVIRONMENTAL Allergy Severe Anaphylatic Uncoded 07/27/18 19:25 Shock PMH/Surg Hx/FS Hx/Imm Hx Endocrine/Hematology History: Reports: Hx Anticoagulant Therapy - previous DVT- Lovenox, Hx Anemia - pt states she has had issues with anemia Denies: Hx Blood Transfusions, Hx Diabetes Cardiovascular History: Reports: Hx Deep Vein Thrombosis - status post tendon repair, Other Cardiovascular Problems/Disorders - 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 Denies: Hx Congestive Heart Failure, Hx Pacemaker/ICD, Hx Rheumatic Fever Respiratory History: Reports: Hx Asthma Denies: Hx Pulmonary Embolism, Other Respiratory Problems/Disorders GI History: Denies: Other GI Disorders History: Denies: Other Problems/Disorders Musculoskeletal History: Reports: Hx Arthritis - REACTIVE ARTHRITIS, Hx Tendonitis - LEFT ANKLE Sensory History: Reports: Hx Contacts or Glasses Denies: Hx Hearing Aid Opthamlomology History: Reports: Hx Contacts or Glasses Neurological History: Denies: Hx Dementia, Hx Developmental Delay, Hx Headaches, Hx Migraine, Hx Nerve Disease, Hx Seizures, Hx Spinal Cord Injury, Hx Transient Ischemic Attacks (TIA), Other Neuro Impairments/Disorders Psychiatric History: Reports: Hx Depression Denies: Hx Anxiety, Hx Panic Disorder, Other Psychiatric Issues/Disorders - Surgical History Surgery Procedure, Year, and Place: l leg tendon reconstruction x2 Hx Anesthesia Reactions: No - Immunization History Date of Tetanus Vaccine: 03/21/15 Date of Influenza Vaccine: 09/19/16 Infectious Disease History: No Infectious Disease History: Denies: Hx Clostridium Difficile, Hx Hepatitis, Hx Human Immunodeficiency Virus (HIV), Hx of Known/Suspected MRSA, Hx Shingles, Hx Tuberculosis, Hx Known/ Suspected VRE, Hx Known/Suspected VRSA, History Other Infectious Disease, Traveled Outside the in Last 30 Days - Family History Known Family History: Positive: Other - Hx CA in grandparents and parents; Hx CVA in sister - Social History 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 Negative: Vomiting Positive: Other - right arm heaviness and right eye heaviness Positive: Headache - Right sided All Other Systems Reviewed And Are Negative: Yes Physical Exam - Summary Physical Exam Summary: VITAL SIGNS: Reviewed. GENERAL: Patient is a well-developed and nourished FEMALE who is lying comfortable in the stretcher. Patient is not in any acute respiratory distress. HEAD AND FACE: No signs of trauma. No ecchymosis, hematomas or skull depressions. No sinus tenderness. EYES: PERRLA, EOMI x 2, No injected conjunctiva, no nystagmus. EARS: Hearing grossly intact. Ear canals and tympanic membranes are within normal limits. MOUTH: Oropharynx within normal limits. NECK: Supple, trachea is midline, no adenopathy, no JVD, no carotid bruit, no c- spine tenderness, neck with full ROM. CHEST: Symmetric, no tenderness at palpation LUNGS: Clear to auscultation bilaterally. No wheezing or crackles. CVS: Regular rate and rhythm, S1 and S2 present, no murmurs or gallops appreciated. ABDOMEN: Soft, non-tender. No signs of distention. No rebound no guarding, and no masses palpated. Bowel sounds are normal. EXTREMITIES: FROM in all major joints, no edema, no cyanosis or clubbing. NEURO: Alert and oriented x 3. No acute neurological deficits. Speech is normal and follows commands, sensation is intact, Cranial nerves are intact. SKIN: Dry and warm Triage Information Reviewed: Yes Vital Signs On Initial Exam: Initial Vitals Temp Pulse Resp BP Pulse Ox 99.1 F 74 16 159/89 100 07/27/18 19:05 07/27/18 19:05 07/27/18 19:05 07/27/18 19:05 07/27/18 19:05 Vital Signs Reviewed: Yes Diagnostics - Vital Signs Vital Signs Temp Pulse Resp BP Pulse Ox 07/27/18 19:05 99.1 F 74 16 159/89 100 - Laboratory Lab Statement: Any lab studies that have been ordered have been reviewed, and results considered in the medical decision making process. - EKG 19:15 Cardiac Rate: NL - 70 BPM EKG Rhythm: Sinus Rhythm EKG Interpretation: Normal axis. Normal interval. No ischemic changes. Headache Course/Dx - Course Course Of Treatment: I did review patient's chart and previous visits. According to hospitalist note and Dr. Lockhart's note. Patient most likely didn' t have ischemic stroke. However she did receive TPA. According to Dr. Lockhart' s note patient's symptoms most likely was psychogenic/complicated migraine. Patient's transesophageal echo did show very small patent foramen ovale. Patient's exam didn't know show any neuro deficit at this time. Patient does have history of anxiety, she is on Lexapro. Time: 1954. Patient refused blood work and refused medications. Patient eloped out of the emergency room. - Diagnoses Provider Diagnoses: Headache Discharge - Sign-Out/Discharge Documenting (check all that apply): Patient Departure - Discharge Plan Condition: Stable Disposition: ELOPEMENT Referrals: Dagoberto Bullard MD [Primary Care Provider] - - Billing Disposition and Condition Condition: STABLE Disposition: Elopement - Attestation Statements Document Initiated by Scribe: Yes Documenting Scribe: Rashel Trammell Provider For Whom Scribe is Documenting (Include Credential): Piper Buckner MD Scribe Attestation: IRashel, scribed for Piper Buckner MD on 07/27/18 at 2025.
[2018-07-27] MEDS ORDERED: Morphine INJ* 2 MG/ML 1 ML SYRINGE (TWO MG - NEW SYRINGE VERSION) IV PRN (19:36)
[2018-07-27] MEDS ORDERED: Metoclopramide IV* 5 MG/ML 2 ML VIAL IV SLOW PU ONE (19:36)
[2018-07-27] MEDS ORDERED: LORazepam INJ* 2 MG/ML 1 ML VIAL IV PUSH ONE (19:36)
[2018-07-27 20:00] VITALS: BP 152/84
== END 2018-07-27 20:00 | disposition home or self-care (01) ==
LOC: ED 19:03
DX: R51 Headache (principal); R11.2 Nausea with vomiting, unspecified; Z79.01 Long term (current) use of anticoagulants; F17.210 Nicotine dependence, cigarettes, uncomplicated
CPT/HCPCS: 93005; 96374; 96375; 99282

== ENCOUNTER 2019-07-29 07:13 | Emergency (ER) | payer BC ==
--- NOTE | 2019-07-29 07:26 | ED ---
GI/ HPI - HPI Summary HPI Summary: Pt. is a 28 y.o female who presents to the ER for dark stools and epigastric pain since yesterday. Pt. has a hx of gastric ulcers as well as CVA. She is currently on coumadin. Pt. states she the beginnging of the year she was having hematemesis and underwent endoscopy in Nov. at [place]. Pt. states she was found to have a gastric ulcer. Pt. states she was placed on PPIs but stopped taking them. Pt. notes about 10 loose, maroon bowel movements since last night. Pt. denies CP, SOB, lightheadedness, dizziness. Sxs are moderate in severity. No current modifying factors. - History of Current Complaint Chief Complaint: EDGIBleed Time Seen by Provider: 07/29/19 07:21 Stated Complaint: POSS BLEEDING ULCER PER PT Hx Obtained From: Patient Hx Last Menstrual Period: 02/05/2014 Pain Intensity: 3 - Additional Pertinent History Primary Care Physician: JESUSITA - Allergy/Home Medications Allergies/Adverse Reactions: Allergies Allergy/AdvReac Type Severity Reaction Status Date / Time bee venom protein (honey bee) Allergy Anaphylatic Verified 07/29/19 07:50 Shock tiotropium Allergy Swelling Verified 07/29/19 07:50 [From Spiriva with Of HandiHaler] Face,Lips,& Throat ENVIRONMENTAL Allergy Severe Anaphylatic Uncoded 07/27/18 19:25 Shock PMH/Surg Hx/FS Hx/Imm Hx Previously Healthy: Yes Endocrine/Hematology History: Reports: Hx Anticoagulant Therapy - previous DVT- Lovenox, Hx Anemia - pt states she has had issues with anemia Denies: Hx Blood Transfusions, Hx Diabetes Cardiovascular History: Reports: Hx Deep Vein Thrombosis - status post tendon repair, Other Cardiovascular Problems/Disorders - 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 Denies: Hx Congestive Heart Failure, Hx Pacemaker/ICD, Hx Rheumatic Fever Respiratory History: Reports: Hx Asthma Denies: Hx Pulmonary Embolism, Other Respiratory Problems/Disorders GI History: Denies: Other GI Disorders History: Denies: Other Problems/Disorders Musculoskeletal History: Reports: Hx Arthritis - REACTIVE ARTHRITIS, Hx Tendonitis - LEFT ANKLE Sensory History: Reports: Hx Contacts or Glasses Denies: Hx Hearing Aid Opthamlomology History: Reports: Hx Contacts or Glasses Neurological History: Denies: Hx Dementia, Hx Developmental Delay, Hx Headaches, Hx Migraine, Hx Nerve Disease, Hx Seizures, Hx Spinal Cord Injury, Hx Transient Ischemic Attacks (TIA), Other Neuro Impairments/Disorders Psychiatric History: Reports: Hx Depression Denies: Hx Anxiety, Hx Panic Disorder, Other Psychiatric Issues/Disorders - Surgical History Surgery Procedure, Year, and Place: l leg tendon reconstruction x2 Hx Anesthesia Reactions: No - Immunization History Date of Tetanus Vaccine: 03/21/15 Date of Influenza Vaccine: 09/19/16 Infectious Disease History: No Infectious Disease History: Denies: Hx Clostridium Difficile, Hx Hepatitis, Hx Human Immunodeficiency Virus (HIV), Hx of Known/Suspected MRSA, Hx Shingles, Hx Tuberculosis, Hx Known/ Suspected VRE, Hx Known/Suspected VRSA, History Other Infectious Disease, Traveled Outside the [place] in Last 30 Days - Family History Known Family History: Positive: Other - Hx CA in grandparents and parents; Hx CVA in sister - Social History Occupation: Employed Full-time Lives: With Family Alcohol Use: Occasionally Substance Use Type: Reports: None Hx Tobacco Use: Yes Smoking Status (MU): Light Every Day Tobacco Smoker Type: Cigarettes Amount Used/How Often: 6-7 cig/day Length of Time of Smoking/Using Tobacco: 8 years Have You Smoked in the Last Year: No Review of Systems Constitutional: Negative Negative: Fever Cardiovascular: Negative Negative: Chest Pain Respiratory: Negative Negative: Shortness Of Breath Positive: Abdominal Pain, Nausea. Negative: Vomiting Neurological: Negative All Other Systems Reviewed And Are Negative: Yes Physical Exam Triage Information Reviewed: Yes Vital Signs On Initial Exam: Initial Vitals Temp Pulse Resp BP Pulse Ox 97.9 F 66 16 153/83 99 07/29/19 07:15 07/29/19 07:15 07/29/19 07:15 07/29/19 07:15 07/29/19 07:15 Vital Signs Reviewed: Yes Appearance: Positive: Well-Appearing - Pt. sitting on bed in NAD. Skin: Positive: Warm, Dry Head/Face: Positive: Normal Head/Face Inspection Eyes: Positive: Normal, EOMI Neck: Positive: Supple Respiratory/Lung Sounds: Positive: Clear to Auscultation, Breath Sounds Present Cardiovascular: Positive: Normal, RRR Abdomen Description: Positive: Other: - Abd. is soft with mild diffuse tenderness. No rebound tenderness or guarding. Rectal exam performed with Merari BORDEN. Nonthrombosed external hemorrhoids. Rectal exam reveals a scant about of dark stool. No active bleeding. Neurological: Positive: Normal, CN Intact II-III Psychiatric: Positive: Affect/Mood Appropriate Procedures - Sedation Patient Received Moderate/Deep Sedation with Procedure: No Diagnostics - Vital Signs Vital Signs Temp Pulse Resp BP Pulse Ox 07/29/19 07:15 97.9 F 66 16 153/83 99 - Laboratory Result Diagrams: 07/29/19 07:39 07/29/19 07:39 Lab Statement: Any lab studies that have been ordered have been reviewed, and results considered in the medical decision making process. GIGU Course/Dx - Course Course Of Treatment: Patient presenting with complaints of dark stools and epigastric pain. Vital signs are stable and has benign exam. CBC shows a stable H&H of 13.4 and 39. INR is subtherapeutic at 1.53. CMP unremarkable. Occult stool is negative for blood. Results discussed with patient. She has had no further bowel movements in the ER. We'll discharge her home. Patient would like to restart Protonix and prescription sent to pharmacy. Advised to call family doctor today to discuss low INR as well as her GI doctor for close follow-up. Return to the ER if symptoms change or worsen. Patient understands and agrees with plan. - Diagnoses Differential Diagnoses - Female: Gerd, Hemorrhoids Provider Diagnoses: GERD (gastroesophageal reflux disease) Discharge ED - Sign-Out/Discharge Documenting (check all that apply): Patient Departure - Discharge Plan Condition: Good Disposition: HOME Prescriptions: Pantoprazole TAB * [Protonix TAB*] 40 mg PO DAILY #30 tab Patient Education Materials: Diet for Stomach Ulcers and Gastritis (ED), Gastroesophageal Reflux Disease (ED) Referrals: Dagoberto Bullard MD [Primary Care Provider] - Additional Instructions: Please schedule a close follow up appointment with your GI doctor Your INR was low today at 1.53--Please call PCP today to discussed Coumadin dosage Return to ER if symptoms change or worsen - Billing Disposition and Condition Condition: GOOD Disposition: Home
[2019-07-29 07:48] LABS: ABS Basophils 0.1 10^3/ul (0-0.2); ABS Eosinophils 0.2 10^3/ul (0-0.6); ABS Lymphocytes 1.9 10^3/ul (1.0-4.8); ABS Monocytes 0.6 10^3/ul (0-0.8); Eosinophil % 2.3 %; Hematocrit 39 % (35-47); Hemoglobin 13.4 g/dL (12.0-16.0); Lymphocyte % 24.7 %; Mean Corpuscular HGB Conc 35 g/dL (31-36); Mean Corpuscular Hemoglobin 33 pg (27-31); Mean Corpuscular Volume 94 fL (80-97); Mean Platelet Volume 7.2 fL (7.4-10.4); Platelet Count 239 10^3/uL (150-450); Red Blood Count 4.11 10^6 /uL (3.70-4.87); Red Cell Distribution Width 13 % (10-15); White Blood Count 7.8 10^3/uL (3.5-10.8)
[2019-07-29 08:05] LABS: Albumin 4.3 g/dL (3.2-5.2); BUN/Creatinine Ratio 16.9 (8-20); Calcium 9.2 mg/dL (8.6-10.3); EGFR African American 120.4 (>60); EGFR Non-African American 99.5 (>60); Globulin 2.1 g/dL (2-4); Potassium 3.9 mmol/L (3.5-5.0); Total Bilirubin 0.3 mg/dL (0.2-1.0); Total Protein 6.4 g/dL (6.4-8.9)
[2019-07-29 08:10] LABS: INR 1.53 (0.82-1.09)
[2019-07-29 08:49] VITALS: BP 126/65
== END 2019-07-29 08:39 | disposition home or self-care (01) ==
LOC: ED 07:13
DX: K21.9 Gastro-esophageal reflux disease without esophagitis (principal); F32.9 Major depressive disorder, single episode, unspecified; F17.210 Nicotine dependence, cigarettes, uncomplicated; Z86.718 Personal history of other venous thrombosis and embolism; Z88.8 Allergy status to other drugs, medicaments and biological substances
CPT/HCPCS: 36415; 80053; 82272; 85025; 85610; 86850; 86900; 86901; 99282

== ENCOUNTER 2019-10-10 05:36 | Emergency (ER) | payer BC ==
--- NOTE | 2019-10-10 05:48 | ED ---
GI/ HPI - HPI Summary HPI Summary: Pt. is a 29 y.o female who presents to the ER for dysuria and urgency x 3 days. Pt. notes intermittent hematuria. Denies fever, chills, N/V, flank pain. Hx of UTI and feels similar per pt. Sxs are mild in severity. No current modifying factors. - History of Current Complaint Chief Complaint: EDUrogenitalProblems Time Seen by Provider: 10/10/19 05:47 Stated Complaint: UTI PER PT Hx Obtained From: Patient Hx Last Menstrual Period: 02/05/2014 Pain Intensity: 6 - Additional Pertinent History Primary Care Physician: JESUSITA - Allergy/Home Medications Allergies/Adverse Reactions: Allergies Allergy/AdvReac Type Severity Reaction Status Date / Time bee venom protein (honey bee) Allergy Anaphylatic Verified 10/10/19 05:38 Shock tiotropium Allergy Swelling Verified 10/10/19 05:38 [From [facility] with [facility]] Face,Lips,& Throat ENVIRONMENTAL Allergy Severe Anaphylatic Uncoded 10/10/19 05:38 Shock PMH/Surg Hx/FS Hx/Imm Hx Previously Healthy: Yes Endocrine/Hematology History: Reports: Hx Anticoagulant Therapy - previous DVT- Lovenox, Hx Anemia - pt states she has had issues with anemia Denies: Hx Blood Transfusions, Hx Diabetes Cardiovascular History: Reports: Hx Deep Vein Thrombosis - status post tendon repair, Other Cardiovascular Problems/Disorders - 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 Denies: Hx Congestive Heart Failure, Hx Pacemaker/ICD, Hx Rheumatic Fever Respiratory History: Reports: Hx Asthma Denies: Hx Pulmonary Embolism, Other Respiratory Problems/Disorders GI History: Denies: Other GI Disorders History: Denies: Other Problems/Disorders Musculoskeletal History: Reports: Hx Arthritis - REACTIVE ARTHRITIS, Hx Tendonitis - LEFT ANKLE Sensory History: Reports: Hx Contacts or Glasses Denies: Hx Hearing Aid Opthamlomology History: Reports: Hx Contacts or Glasses Neurological History: Denies: Hx Dementia, Hx Developmental Delay, Hx Headaches, Hx Migraine, Hx Nerve Disease, Hx Seizures, Hx Spinal Cord Injury, Hx Transient Ischemic Attacks (TIA), Other Neuro Impairments/Disorders Psychiatric History: Reports: Hx Depression Denies: Hx Anxiety, Hx Panic Disorder, Other Psychiatric Issues/Disorders - Surgical History Surgery Procedure, Year, and Place: l leg tendon reconstruction x2 Hx Anesthesia Reactions: No - Immunization History Date of Tetanus Vaccine: 03/21/15 Date of Influenza Vaccine: 09/19/16 Infectious Disease History: No Infectious Disease History: Denies: Hx Clostridium Difficile, Hx Hepatitis, Hx Human Immunodeficiency Virus (HIV), Hx of Known/Suspected MRSA, Hx Shingles, Hx Tuberculosis, Hx Known/ Suspected VRE, Hx Known/Suspected VRSA, History Other Infectious Disease, Traveled Outside the [place] in Last 30 Days - Family History Known Family History: Positive: Other - Hx CA in grandparents and parents; Hx CVA in sister - Social History Occupation: Retired Lives: With Family Alcohol Use: Occasionally Substance Use Type: Reports: None Hx Tobacco Use: Yes Smoking Status (MU): Light Every Day Tobacco Smoker Type: Cigarettes Amount Used/How Often: 6-7 cig/day Length of Time of Smoking/Using Tobacco: 8 years Have You Smoked in the Last Year: No Review of Systems Constitutional: Negative Negative: Fever Gastrointestinal: Negative Negative: Abdominal Pain, Vomiting Positive: dysuria, frequency, hematuria, urgency. Negative: discharge, flank pain All Other Systems Reviewed And Are Negative: Yes Physical Exam Triage Information Reviewed: Yes Vital Signs On Initial Exam: Initial Vitals Temp Pulse Resp BP Pulse Ox 98.0 F 71 15 121/72 99 10/10/19 05:37 10/10/19 05:37 10/10/19 05:37 10/10/19 05:37 10/10/19 05:37 Vital Signs Reviewed: Yes Appearance: Positive: Well-Appearing - Pt. sitting up in bed in NAD. Skin: Positive: Warm, Dry Head/Face: Positive: Normal Head/Face Inspection Eyes: Positive: Normal, EOMI Neck: Positive: Supple Abdomen Description: Positive: Nontender, Soft. Negative: CVA Tenderness (R), CVA Tenderness (L) Musculoskeletal: Positive: Normal, Strength/ROM Intact Neurological: Positive: Normal, CN Intact II-III Psychiatric: Positive: Affect/Mood Appropriate Procedures - Sedation Patient Received Moderate/Deep Sedation with Procedure: No Diagnostics - Vital Signs Vital Signs Temp Pulse Resp BP Pulse Ox 10/10/19 05:37 98.0 F 71 15 121/72 99 - Laboratory Lab Statement: Any lab studies that have been ordered have been reviewed, and results considered in the medical decision making process. GIGU Course/Dx - Course Course Of Treatment: Pt. with urinary sxs. Afebrile and well appearing. Negative flank pain. U/A consistent with UTI. Will treat with Bactrim. To increase fluids. tylenol or motrin for pain as directed. WIll return to er if sxs change or worsen. - Diagnoses Differential Diagnoses - Female: STD, Urinary Tract Infection, Ureteral Calculi , Vaginitis Provider Diagnoses: UTI (urinary tract infection) Discharge ED - Sign-Out/Discharge Documenting (check all that apply): Patient Departure - Discharge Plan Condition: Good Disposition: HOME Prescriptions: Fluconazole 150 MG TAB* [Diflucan 150 MG TAB*] 150 mg PO ONCE #2 tablet Sulfamethox/Trimethoprim DS* [Bactrim DS 800/160 TAB*] 1 tab PO BID 10 Days #20 tab Patient Education Materials: Urinary Tract Infection in Women (ED) Referrals: Dagoberto Bullard MD [Primary Care Provider] - Additional Instructions: Follow up with PCP if symptoms persist Medication as directed Increase fluids Tylenol or Motrin for pain as directed Return to ER for fever, vomiting, flank pain - Billing Disposition and Condition Condition: GOOD Disposition: Home - Attestation Statements Provider Attestation: I was available for consult. This patient was seen by the PHILIPP. The patient was not presented to, seen by, or examined by me. Nicolás Mcmahon MD
[2019-10-10 06:06] LABS: Urine Appearance Cloudy; Urine Bilirubin Negative (Negative); Urine Blood 2+ (Negative); Urine Color Yellow; Urine Glucose Negative (Negative); Urine Ketones Trace (Negative); Urine Nitrite Negative (Negative); Urine Protein Negative (Negative); Urine Specific Gravity 1.031 (1.010-1.030); Urine Urobilinogen Negative (Negative)
[2019-10-10 06:08] LABS: Urine Bacteria 1+ (Absent); Urine Red Blood Cell 3+(>10/hpf) (Absent); Urine Squamous Epithelial Cell Present (Absent); Urine White Blood Cell 1+(6-10/hpf) (Absent)
[2019-10-10 06:34] VITALS: BP 0/0
== END 2019-10-10 06:33 | disposition home or self-care (01) ==
LOC: ED 05:36
DX: N39.0 Urinary tract infection, site not specified (principal); F17.210 Nicotine dependence, cigarettes, uncomplicated; R30.0 Dysuria; Z79.01 Long term (current) use of anticoagulants; Z86.718 Personal history of other venous thrombosis and embolism
CPT/HCPCS: 81003; 81015; 87086; 99282

== ENCOUNTER 2024-05-19 13:22 | Inpatient (IN) ==
[~2024-05-19 13:22] MED LIST: EPINEPHrine Anaphylaxis SYR CERTADOSE SYR KIT ONE; Famotidine IV 10 MG/ML 2 ml VIAL (20 mg) ONE; methylPREDNISolone SOD SUCC 125 mg 2 ML VIAL ONE
[2024-05-19] MEDS: EPINEPHrine Anaphylaxis SYR CERTADOSE SYR KIT IM ONE ×2 (13:28→15:33)
[2024-05-19] MEDS ORDERED: Albuterol/Ipratropium NEB.SOL (2.5/0.5 MG) 3 ML NEB.SOLN ONE ×2 (13:29→13:42)
[2024-05-19] MEDS ORDERED: EPINEPHrine Anaphylaxis SYR CERTADOSE SYR KIT ONE (13:32)
[2024-05-19] MEDS ORDERED: Famotidine IV 10 MG/ML 2 ml VIAL (20 mg) ONE (13:34)
[2024-05-19] MEDS: methylPREDNISolone SOD SUCC 125 mg 2 ML VIAL IV ONE (13:35)
[2024-05-19] MEDS: Famotidine IV 10 MG/ML 2 ml VIAL (20 mg) IV SLOW PU ONE (13:36)
[2024-05-19] MEDS: EPINEPHrine Titratable IV 5 MG/250 mL IV SCH (13:40)
[2024-05-19] MEDS ORDERED: Rocuronium 50 mg VIAL 10 mg/ml 5 ml VIAL (50 mg) ONE ×2 (13:53→13:58)
[2024-05-19] MEDS ORDERED: Magnesium Sulfate 2 gm BAG 2 GM/50 ML BAG ONE (13:56)
[2024-05-19] MEDS: Etomidate 20 mg/10 ml 2 MG/ML 10 ml VIAL IV ONE (13:58)
[2024-05-19] MEDS ORDERED: Etomidate 40 mg/20 ml (2 MG/ML) 20 ml VIAL (40 mg) ONE (13:58)
[2024-05-19] MEDS: Rocuronium 50 mg VIAL 10 mg/ml 5 ml VIAL (50 mg) IV ONE (13:59)
[2024-05-19] MEDS ORDERED: Propofol 10 mg/ml 100 ML BTL 1,000 MG/100 ML BTL ONE (14:01)
[2024-05-19] MEDS: Magnesium Sulfate 2 gm BAG 2 GM/50 ML BAG IVPB ONE (14:03)
[2024-05-19] MEDS: Propofol 10 mg/ml 100 ML BTL 1,000 MG/100 ML BTL IV SCH ×2 (14:16→16:55)
[2024-05-19] MEDS ORDERED: fentaNYL 100 mcg/2 ml 50 MCG/ML VIAL ONE (14:18)
[2024-05-19] MEDS: fentaNYL 100 mcg/2 ml 50 MCG/ML VIAL IV SLOW PU PRN ×2 (14:28→20:54)
[2024-05-19] MEDS: Ondansetron 4 mg VIAL 2 MG/ML 2 ml VIAL IV PRN (15:28)
[2024-05-19] MEDS: Midazolam 5 mg/5 ml VIAL 1 mg/ml 5 ml VIAL (5 mg) IV SLOW PU ONE ×2 (15:30→15:45)
[2024-05-19] MEDS: Midazolam 5 mg/5 ml VIAL 1 mg/ml 5 ml VIAL (5 mg) IV SLOW PU PRN (15:50)
[2024-05-19] MEDS: fentaNYL INFUSION 50 mcg/mL VL 2,500 MCG/50 ML VIAL IV SCH ×3 (15:50→22:20)
[2024-05-19] MEDS: Ondansetron 4 mg VIAL 2 MG/ML 2 ml VIAL ONE (15:57)
[2024-05-19] MEDS: Midazolam 5 mg/5 ml VIAL 1 mg/ml 5 ml VIAL (5 mg) ONE ×2 (15:58→16:55)
[2024-05-19] MEDS ORDERED: Propofol 10 mg/ml 100 ML BTL 1,000 MG/100 ML BTL IV SCH (16:00)
[2024-05-19] MEDS: Ketamine HCL 50 mg/ml 10 ml VIAL (500 MG) IV PRN (16:24)
[2024-05-19 16:42] LABS: Urine Appearance Clear; Urine Bilirubin Negative (Negative); Urine Blood Negative (Negative); Urine Color Yellow; Urine Glucose Negative (Negative); Urine Ketones Negative (Negative); Urine Nitrite Negative (Negative); Urine Protein Negative (Negative); Urine Specific Gravity 1.021 (1.002-1.030); Urine Urobilinogen Negative (Negative)
[2024-05-19] MEDS: Propofol 10 mg/ml 100 ML BTL 1,000 MG/100 ML BTL ONE (16:55)
[2024-05-19] MEDS: Ketamine INFUS(restricted) NS 500 MG/500 ML BAG IV SCH (16:57)
[2024-05-19] MEDS: Chlorhexidine MOUTHWASH 0.12% 15 ML UDC TOPICAL SCH (17:11)
[2024-05-19] MEDS: Ketamine HCL 50 mg/ml 10 ml VIAL (500 MG) ONE (17:11)
[2024-05-19] MEDS: Lactated Ringers 1000 ml BAG 1,000 ML IV SCH (17:51)
[2024-05-19 18:08] LABS: ABS Lymphocytes 0.4 10^3/uL (1.0-4.8); ABS Monocytes 0.1 10^3/uL (0.0-0.9); ABS Neutrophils 15.9 10^3/uL (1.5-7.6); Hemoglobin 13.7 g/dL (11.5-14.3); Lymphocyte % 2.6 %; Mean Corpuscular Hemoglobin 32.3 pg (27-33); Mean Corpuscular Hgb Conc 33.5 g/dL (31-36); Mean Corpuscular Volume 96.4 fL (80-97); Platelet Count 258 10^3/uL (150-450); Red Blood Count 4.25 10^6/uL (3.63-4.92); Red Cell Distribution Width 13.6 % (12-17); White Blood Count 16.5 10^3/uL (3.8-11.8)
[2024-05-19 18:25] LABS: Anion Gap 6 mmol/L (2-16); Blood Urea Nitrogen 9 mg/dL (6-24); CO2 Carbon Dioxide 21 mmol/L (22-32); Calcium 7.7 mg/dL (8.6-10.3); Calcium 8.7 mg/dL (8.6-10.3); Chloride 113 mmol/L (101-111); Creatinine, Serum 0.62 mg/dL (0.51-0.95); Creatinine, Serum 0.68 mg/dL (0.51-0.95); Glucose 95 mg/dL (70-100); Potassium 3.1 mmol/L (3.5-5.0); Potassium 3.3 mmol/L (3.5-5.0); Sodium 140 mmol/L (135-145); Triglycerides 132 mg/dL; eGFR CKD-EPI 119.3 (>60)
[2024-05-19 18:31] LABS: HCG Pregnancy < 0.60 mIU/mL
[2024-05-19] MEDS: fentaNYL 100 mcg/2 ml 50 MCG/ML VIAL IV SLOW PU ONE (19:59)
[2024-05-19] MEDS: KCL 20 MEQ/100 ML IVPREMIX 20 MEQ/100 ML BAG IV SCH (20:56)
[2024-05-19 21:24] LABS: Magnesium 1.9 mg/dL (1.9-2.7)
[2024-05-20] MEDS: fentaNYL INFUSION 50 mcg/mL VL 2,500 MCG/50 ML VIAL IV SCH (00:53)
[2024-05-20 05:16] LABS: ABS Lymphocytes 0.9 10^3/uL (1.0-4.8); ABS Monocytes 0.6 10^3/uL (0.0-0.9); Hemoglobin 12.4 g/dL (11.5-14.3); Lymphocyte % 6.9 %; Mean Corpuscular Hemoglobin 32.6 pg (27-33); Mean Corpuscular Hgb Conc 34.3 g/dL (31-36); Mean Corpuscular Volume 95.1 fL (80-97); Mean Platelet Volume 7.7 fL (7.5-11.2); Platelet Count 241 10^3/uL (150-450); Red Blood Count 3.79 10^6/uL (3.63-4.92); Red Cell Distribution Width 13.5 % (12-17); White Blood Count 12.5 10^3/uL (3.8-11.8)
[2024-05-20 05:46] LABS: Calcium 8.6 mg/dL (8.6-10.3); Creatinine, Serum 0.53 mg/dL (0.51-0.95); Potassium 4.7 mmol/L (3.5-5.0); eGFR CKD-EPI 126.7 (>60)
[2024-05-20 06:18] LABS: Magnesium 2.1 mg/dL (1.9-2.7)
[2024-05-20] MEDS: LORazepam 2 mg VIAL 1 ml IV PUSH ONE (08:45)
[2024-05-20] MEDS ORDERED: Lorazepam PYXIS KEY PRN (09:43)
[2024-05-20] MEDS: LORazepam 2 mg VIAL 1 ml ONE (09:51)
[2024-05-20] MEDS: Pantoprazole VIAL 40 MG VIAL IV SCH (12:10)
[2024-05-20] MEDS: Venlafaxine XR 75 mg PO SCH (12:14)
[2024-05-20 17:56] VITALS: BP 118/83
== END 2024-05-20 18:00 | disposition home or self-care (01) | DRG 816 ==
LOC: ED 13:22 → EDHOLD 14:05 → ICU 14:39
PROVIDERS: ADMIT Internal Medicine Critical Care Medicine; ATTEND Internal Medicine Critical Care Medicine